=== PATIENT | male | born 1985 | race Asian ===

== ENCOUNTER 2016-11-04 17:00 | Emergency (ER) | payer OTHER ==
[~2016-11-04] VITALS: Ht 162.6 cm; Wt 86.2 kg
[2016-11-04 17:15] VITALS: BP 136/71
[2016-11-04] MEDS ORDERED: KETO15CR TP (17:40)
[2016-11-04] MEDS ORDERED: FLUC150T PO (17:40)
--- NOTE | 2016-11-04 17:41 | PHYS DOC ---
Past Medical History Past Medical History: No Pertinent History Past Surgical History: No Surgical History Alcohol Use: None Drug Use: None Adult General Chief Complaint Chief Complaint: SKIN PROBLEM HPI HPI Patient is a 31 year old male with no significant medical history who presents with ring wants to bilateral lower extremities that he has had for 1 month. He states he was given a prescription medicine that he has been using with no help. Review of Systems Review of Systems Constitutional: Denies fever or chills [] Eyes: Denies change in visual acuity, redness, or eye pain [] Musculoskeletal: Denies back pain or joint pain [] Integument: Ringworm rash Neurologic: Denies headache, focal weakness or sensory changes [] Endocrine: Denies polyuria or polydipsia [] Allergies Allergies Allergies Coded Allergies Type Severity Reaction Last Updated Verified No Known Drug Allergies 11/04/16 No Physical Exam Physical Exam Constitutional: Well developed, well nourished, no acute distress, non-toxic appearance. [] HENT: Normocephalic, atraumatic, bilateral external ears normal, oropharynx moist, no oral exudates, nose normal. [] Skin: Bilateral lower extremities with small amount of scattered areas of ringworm rashes, trace amount of the same rash on the right lower abdomen. Back: No tenderness, no CVA tenderness. [] Extremities: No tenderness, no cyanosis, no clubbing, ROM intact, no edema. [] Neurologic: Alert and oriented X 3, normal motor function, normal sensory function, no focal deficits noted. [] Psychologic: Affect normal, judgement normal, mood normal. [] Current Patient Data Vital Signs Vital Signs Date Time Temp Pulse Resp B/P (MAP) Pulse Ox O2 Delivery O2 Flow Rate FiO2 11/04/16 17:15 98.1 87 18 97 Room Air 98.1 EKG EKG [] Radiology/Procedures Radiology/Procedures [] Course & Med Decision Making Course & Med Decision Making Pertinent Labs and Imaging studies reviewed. (See chart for details) Patient has ringworm rashes to the right lower abdomen and bilateral lower extremity that he has tried to use a prescription cream medicine with no relief. We will send him home with fluconazole once a week for 3 weeks. We recommended he follows up with the primary care doctor to have his liver function monitored. Dragon Disclaimer Dragon Disclaimer This electronic medical record was generated, in whole or in part, using a voice recognition dictation system. Departure Departure Impression: Primary Impression: Tinea corporis Disposition: 01 HOME, SELF-CARE Condition: STABLE Referrals: MARIS LOPEZ MD Follow-up with your own primary care doctor in 3-7 days for liver function test as well as a youth advocate Patient Instructions: Body Ringworm Additional Instructions: You were seen for ongoing ringworm rashes. We'll put him a prescription oral medicine. This medication requires you to follow-up with your own primary care doctor in 3 days and have your liver function monitored closely. Call your primary care doctor's office tomorrow and get a follow-up appointment. Ring worms take weeks to clear. Be patient. Scripts Ketoconazole (KETOCONAZOLE) 15 Gm Cream..g. 1 CHARAN TP BID, #60 GM 3 Refills Use upto one week after the lesions are gone Prov: JUDY RAMIREZ APRN 11/04/16 Fluconazole (DIFLUCAN) 150 Mg Tablet 1 TAB PO WEEKLY, #3 TAB 1 Refill Prov: JUDY RAMIREZ APRN 11/04/16 JUDY RAMIREZ APRN November 04, 2016 17:40
== END 2016-11-04 17:45 | disposition home or self-care (01) ==
LOC: ER 17:00
DX: B35.4 Tinea corporis (principal)
CPT/HCPCS: 99283

== ENCOUNTER 2017-06-13 06:31 | Emergency (ER) | payer OTHER | END 2017-06-13 07:58 | disposition home or self-care (01) | LOC: ER 06:31 | DX: J06.9 Acute upper respiratory infection, unspecified (principal) | CPT/HCPCS: 99283 ==

== ENCOUNTER 2019-09-20 16:57 | Emergency (ER) | payer OTHER ==
[~2019-09-20] VITALS: Ht 162.6 cm; Wt 64.0 kg
[~2019-09-20 16:57] MED LIST: FLUC150T PO; KETO15CR2 TP
[2019-09-20 17:21] VITALS: BP 132/82
[2019-09-20] MEDS ORDERED: METH4TAB2 PO (17:35)
[2019-09-20] MEDS ORDERED: AMOX500C PO (17:36)
--- NOTE | 2019-09-20 17:36 | PHYS DOC ---
Past Medical History Past Medical History: No Pertinent History Past Surgical History: No Surgical History Smoking Status: Never Smoker Alcohol Use: None Drug Use: None Adult General Chief Complaint Chief Complaint: SORE THROAT HPI HPI Patient is a 34 year old male who presents with 3 days of sore throat. Denies fever, abdominal pain, nausea, vomiting, diarrhea, cough, nasal congestion, headache, dizziness, chest pain, shortness of breath. Patient states has been taking Aleve for his pain. Review of Systems Review of Systems HENT: Denies nasal congestion. +sore throat [] All other systems were reviewed and found to be within normal limits, except as documented in this note. Allergies Allergies Allergies Coded Allergies Type Severity Reaction Last Updated Verified No Known Drug Allergies 11/04/16 No Physical Exam Physical Exam Constitutional: Well developed, well nourished, no acute distress, non-toxic appearance. [] HENT: Normocephalic, atraumatic, bilateral external ears normal, oropharynx moist, no oral exudates, nose normal. Throat red with swollen tonsils and exudates. [] Eyes: PERRLA, EOMI, conjunctiva normal, no discharge. [] Neck: Normal range of motion, no tenderness, supple, no stridor. [] Cardiovascular:Heart rate regular rhythm, no murmur [] Lungs & Thorax: Bilateral breath sounds clear to auscultation [] Abdomen: Bowel sounds normal, soft, no tenderness, no masses, no pulsatile masses. [] Skin: Warm, dry, no erythema, no rash. [] Back: No tenderness, no CVA tenderness. [] Extremities: No tenderness, no cyanosis, no clubbing, ROM intact, no edema. [] Neurologic: Alert and oriented X 3, normal motor function, normal sensory function, no focal deficits noted. [] Psychologic: Affect normal, judgement normal, mood normal. [] Current Patient Data Vital Signs Vital Signs Date Time Temp Pulse Resp B/P (MAP) Pulse Ox O2 Delivery O2 Flow Rate FiO2 09/20/19 17:21 98.5 108 132/82 (99) 100 Room Air 98.5 EKG EKG [] Radiology/Procedures Radiology/Procedures [] Course & Med Decision Making Course & Med Decision Making Pertinent Labs and Imaging studies reviewed. (See chart for details) Alert and oriented. Speaks in full clear sentences. Patient states he is eating and drinking appropriately. Patient rates his pain a 6 out of 10. Bilateral tonsils are 2+ swollen with redness and exudates. Clear to auscultation all lobes. Vital signs within normal limits. Uvula midline. [] Dragon Disclaimer Dragon Disclaimer This electronic medical record was generated, in whole or in part, using a voice recognition dictation system. Departure Departure Impression: Primary Impression: Sore throat Disposition: HOME, SELF-CARE Condition: STABLE Referrals: HEBER GIANG MD (PCP) Patient Instructions: Strep Throat Additional Instructions: Continue taking Aleve. Drink plenty of fluids. Take medications with food and until they are completed. Scripts Amoxicillin (AMOXICILLIN) 500 Mg Capsule 1 CAP PO BID, #20 CAP Prov: DAYRON MCCOLLUM APRN 09/20/19 Methylprednisolone (MEDROL) 4 Mg Tab.ds.pk 1 PKG PO UD, #1 PKG Prov: DAYRON MCCOLLUM APRN 09/20/19 DAYRON MCCOLLUM APRN Sep 20, 2019 17:36
== END 2019-09-20 18:14 | disposition home or self-care (01) ==
LOC: ER 16:57
DX: J02.9 Acute pharyngitis, unspecified (principal)
CPT/HCPCS: 87070; 87880; 99283